=== PATIENT | female | born 1995 | race Caucasian/White ===

== ENCOUNTER 2019-01-27 16:38 | Emergency (ER) | payer BC ==
[~2019-01-27] VITALS: Ht 170.2 cm; Wt 80.9 kg
[2019-01-27 16:48] VITALS: Ht 170.2 cm; Wt 80.9 kg
[2019-01-27] MEDS ORDERED: NEXIUM40 MG PO (16:50)
[2019-01-27 17:09] LABS: BASOPHILS 0.1 % (0-2); EOSINOPHILS 0 % (0-7); HEMATOCRIT 41.5 % (36.0-48.0); IMMATURE GRANULOCYTES 0.2 % (0-5); LYMPHOCYTES 6.6 % (15-50); MCH 30.9 pg (26.0-34.0); MCHC 33.7 g/dL (31.0-37.0); MCV 91.6 fL (80.0-100.0); MEAN PLATELET VOLUME 11.2 fL (7.4-10.4); MONOCYTES 1.7 % (2-11); NEUTROPHILS 91.4 % (40-80); RBC 4.53 10x6/uL (4.00-5.40); RDW 12.9 % (11.5-14.5); WBC 13.7 10x3/uL (4.8-10.8)
[2019-01-27 17:19] LABS: CALC OSMOLALITY 281 mosm/kg (275-300); CARBON DIOXIDE 25.5 mmol/L (21.0-32.0); CHLORIDE - SERUM 103 mmol/L (98-107); CREATININE - SERUM 0.7 mg/dL (0.6-1.3); GLUCOSE 128 mg/dL (74-106); POTASSIUM - SERUM 3.8 mmol/L (3.5-5.1); SODIUM 141 mmol/L (136-145); UREA NITROGEN 10 mg/dL (7-18); eGFR NON AFRICAN AMERICAN > 90 mL/min (90-120)
[2019-01-27 17:24] LABS: PLATELET COUNT 223 10x3/uL (130-400)
[2019-01-27 17:28] LABS: ALBUMIN 4.5 g/dL (3.4-5.0); ALKALINE PHOSPHATASE 71 U/L (46-116); ALT (SGPT) 30 U/L (10-68); AMYLASE - SERUM 31 U/L (25-115); BILIRUBIN - TOTAL 0.37 mg/dL (0.2-1.3); LIPASE 50 U/L (73-393); PROTEIN - SERUM 8.5 g/dL (6.4-8.2)
[2019-01-27 17:29] LABS: TROPONIN-I < 0.017 ng/mL (0.000-0.060)
[2019-01-27 18:20] LABS: APPEARANCE CLEAR (CLEAR); BILIRUBIN NEGATIVE (NEGATIVE); COLOR YELLOW (YELLOW); GLUCOSE NEGATIVE (NEGATIVE); HCG URINE NEGATIVE (NEGATIVE); KETONE LARGE mg/dL (NEGATIVE); NITRITE NEGATIVE (NEGATIVE); PROTEIN NEGATIVE (NEGATIVE); UROBILINOGEN NORMAL (NORMAL)
[2019-01-27] MEDS ORDERED: ZOFRAN ODT4 MG/UDTAB PO (18:59)
[2019-01-27 19:14] VITALS: BP 128/66
[2019-01-28] MEDS ORDERED: PHENERGAN25 MG RC (06:43)
== END 2019-01-27 19:14 | disposition home or self-care (01) ==
LOC: D.ER 16:38
PROVIDERS: Family Medicine
DX: R11.2 Nausea with vomiting, unspecified (principal); R82.90 Unspecified abnormal findings in urine

== ENCOUNTER 2019-01-28 05:25 | Emergency (ER) | payer BC ==
[~2019-01-28] VITALS: Ht 170.2 cm; Wt 80.7 kg
[~2019-01-28 05:25] MED LIST: NEXIUM40 MG PO; ZOFRAN ODT4 MG/UDTAB PO
[2019-01-28 05:29] VITALS: Ht 170.2 cm; Wt 80.7 kg
[2019-01-28 05:47] LABS: BASOPHILS 0.1 % (0-2); EOSINOPHILS 0.1 % (0-7); HEMOGLOBIN 13.9 g/dL (12-16); IMMATURE GRANULOCYTES 0.3 % (0-5); LYMPHOCYTES 10.9 % (15-50); MCH 30.5 pg (26.0-34.0); MCHC 33.1 g/dL (31.0-37.0); MCV 92.3 fL (80.0-100.0); MONOCYTES 5.7 % (2-11); NEUTROPHILS 82.9 % (40-80); PLATELET COUNT 223 10x3/uL (130-400); RBC 4.55 10x6/uL (4.00-5.40); RDW 13.2 % (11.5-14.5); WBC 16.2 10x3/uL (4.8-10.8)
[2019-01-28 05:55] LABS: CALC OSMOLALITY 279 mosm/kg (275-300); CALCIUM 9.6 mg/dL (8.5-10.1); CARBON DIOXIDE 27.2 mmol/L (21.0-32.0); CHLORIDE - SERUM 103 mmol/L (98-107); CREATININE - SERUM 0.8 mg/dL (0.6-1.3); GLUCOSE 107 mg/dL (74-106); POTASSIUM - SERUM 3.5 mmol/L (3.5-5.1); SODIUM 141 mmol/L (136-145); UREA NITROGEN 10 mg/dL (7-18); eGFR NON AFRICAN AMERICAN > 90 mL/min (90-120)
[2019-01-28 06:01] LABS: ALBUMIN 4.2 g/dL (3.4-5.0); ALKALINE PHOSPHATASE 65 U/L (46-116); ALT (SGPT) 27 U/L (10-68); BILIRUBIN - TOTAL 0.58 mg/dL (0.2-1.3); PROTEIN - SERUM 7.7 g/dL (6.4-8.2)
[2019-01-28 06:02] LABS: LIPASE 67 U/L (73-393)
[2019-01-28] MEDS ORDERED: PHENERGAN25 MG RC (06:43)
[2019-01-28 06:52] LABS: T4 THYROXIN - FREE 0.97 ng/dL (0.76-1.46)
[2019-01-28 07:13] LABS: UDS - AMPHET NEGATIVE QUAL (NEGATIVE); UDS - BARB NEGATIVE QUAL (NEGATIVE); UDS - BENZO NEGATIVE QUAL (NEGATIVE); UDS - COCAINE NEGATIVE QUAL (NEGATIVE); UDS - OPIATE NEGATIVE QUAL (NEGATIVE); UDS - PCP NEGATIVE QUAL (NEGATIVE); UDS - THC POSITIVE QUAL (NEGATIVE)
[2019-01-28 07:37] LABS: APPEARANCE CLEAR (CLEAR); BILIRUBIN NEGATIVE (NEGATIVE); COLOR YELLOW (YELLOW); GLUCOSE NEGATIVE (NEGATIVE); HCG URINE NEGATIVE (NEGATIVE); KETONE LARGE mg/dL (NEGATIVE); NITRITE NEGATIVE (NEGATIVE); PROTEIN TRACE mg/dL (NEGATIVE); UROBILINOGEN NORMAL (NORMAL)
[2019-01-28 07:38] LABS: BACTERIA FEW /hpf (NEGATIVE); EPITHELIAL CELLS 0-5 /hpf (0-5); MUCUS <1+ /lpf (NONE SEEN); RED CELLS - URINE 0-5 /hpf (0-5); WHITE CELLS - URINE 0-5 /hpf (NEGATIVE)
[2019-01-28 07:50] VITALS: BP 119/64
== END 2019-01-28 07:51 | disposition home or self-care (01) ==
LOC: D.ER 05:25
PROVIDERS: Family Medicine
DX: E05.90 Thyrotoxicosis, unspecified without thyrotoxic crisis or storm (principal); R11.10 Vomiting, unspecified

== ENCOUNTER → 2019-03-06 | Emergency (ER) | payer BC ==
[~2019-03-06] VITALS: Ht 170.2 cm; Wt 79.5 kg
[~2019-03-06] MED LIST changes: +DEXILANT60 MG PO; +PEPCID AC20 MG PO; +PHENERGAN25 MG RC
[2019-03-06 21:04] VITALS: BP 130/67; Ht 170.2 cm; Wt 79.5 kg
[2019-03-06 21:50] LABS: CALC OSMOLALITY 281 mosm/kg (275-300); CALCIUM 9.5 mg/dL (8.5-10.1); CARBON DIOXIDE 25.5 mmol/L (21.0-32.0); CHLORIDE - SERUM 103 mmol/L (98-107); CREATININE - SERUM 0.7 mg/dL (0.6-1.3); GLUCOSE 136 mg/dL (74-106); POTASSIUM - SERUM 3.7 mmol/L (3.5-5.1); SODIUM 141 mmol/L (136-145); UREA NITROGEN 11 mg/dL (7-18); eGFR NON AFRICAN AMERICAN > 90 mL/min (90-120)
[2019-03-06 21:55] LABS: BASOPHILS 0 % (0-2); EOSINOPHILS 0 % (0-7); HEMATOCRIT 40.3 % (36.0-48.0); HEMOGLOBIN 13.8 g/dL (12-16); IMMATURE GRANULOCYTES 0.1 % (0-5); LYMPHOCYTES 4.7 % (15-50); MCH 30.8 pg (26.0-34.0); MCHC 34.2 g/dL (31.0-37.0); MEAN PLATELET VOLUME 11.1 fL (7.4-10.4); MONOCYTES 1.3 % (2-11); NEUTROPHILS 93.9 % (40-80); PLATELET COUNT 203 10x3/uL (130-400); RBC 4.48 10x6/uL (4.00-5.40); RDW 12.3 % (11.5-14.5); WBC 16.2 10x3/uL (4.8-10.8)
[2019-03-06 21:56] LABS: ALBUMIN 4.5 g/dL (3.4-5.0); ALKALINE PHOSPHATASE 82 U/L (46-116); ALT (SGPT) 44 U/L (10-68); BILIRUBIN - TOTAL 0.28 mg/dL (0.2-1.3); LIPASE 58 U/L (73-393)
[2019-03-06 22:15] LABS: APPEARANCE CLEAR (CLEAR); BILIRUBIN NEGATIVE (NEGATIVE); COLOR YELLOW (YELLOW); GLUCOSE NEGATIVE (NEGATIVE); KETONE NEGATIVE (NEGATIVE); NITRITE NEGATIVE (NEGATIVE); PROTEIN NEGATIVE (NEGATIVE); SPECIFIC GRAVITY 1.025 (1.005-1.020); UROBILINOGEN NORMAL (NORMAL)
[2019-03-06 22:16] LABS: BACTERIA FEW /hpf (NEGATIVE); EPITHELIAL CELLS 0-5 /hpf (0-5); HCG URINE NEGATIVE (NEGATIVE); RED CELLS - URINE 0-5 /hpf (0-5); WHITE CELLS - URINE 0-5 /hpf (NEGATIVE)
== END | disposition home or self-care (01) ==
LOC: D.ER 20:19
PROVIDERS: Family Medicine
DX: R11.0 Nausea (principal); K29.70 Gastritis, unspecified, without bleeding; K21.9 Gastro-esophageal reflux disease without esophagitis

== ENCOUNTER → 2019-05-05 09:22 | Outpatient (CLI) | payer BC ==
[2019-03-06 21:04] VITALS: BMI 27.4
[2019-05-05 10:43] LABS: APTT 31.8 SECONDS (22.8-39.4)
[2019-05-05 10:44] LABS: INR 1.1 (0.85-1.17); PROTIME 14.2 SECONDS (11.6-15.0)
[2019-05-05 10:48] LABS: % SATURATION 53 % (15-55); IRON 137 ug/dl (35-150); TOTAL IRON BIND CAPACITY 258 ug/dl (260-445); UNSAT IRON BIND CAPACITY 121 ug/dl (150-375)
[2019-05-05 11:10] LABS: ALBUMIN 4.7 g/dL (3.4-5.0); ALKALINE PHOSPHATASE 67 U/L (30-120); ALT (SGPT) 52 U/L (10-68); AMYLASE - SERUM 51 U/L (25-115); BILIRUBIN - DIRECT 0.23 mg/dL (0.00-0.30); CALC OSMOLALITY 279 mosm/kg (275-300); CALCIUM 9.9 mg/dL (8.5-10.1); CARBON DIOXIDE 28.1 mmol/L (21.0-32.0); CHLORIDE - SERUM 104 mmol/L (98-107); CHOL - HDL RATIO 2.5 ratio (2.3-4.1); CHOLESTEROL, TOTAL 112 mg/dL (0-200); CREATININE - SERUM 0.8 mg/dL (0.6-1.3); FERRITIN 114 ng/mL (3-244); GAMMA GT 25 U/L (5-85); HDL CHOLESTEROL 45 mg/dL (32-96); LDL CHOLESTEROL 58 mg/dL (0-100); LDL-HDL RATIO 1.3 ratio (1.5-3.5); LIPASE 110 U/L (73-393); POTASSIUM - SERUM 4.1 mmol/L (3.5-5.1); PROTEIN - SERUM 8.2 g/dL (6.4-8.2); SODIUM 141 mmol/L (136-145); TRIGLYCERIDE 47 mg/dL (30-200); UREA NITROGEN 13 mg/dL (7-18); eGFR NON AFRICAN AMERICAN > 90 mL/min (90-120)
[2019-05-05 11:12] LABS: GLUCOSE 83 mg/dL (74-106)
[2019-05-06 08:11] LABS: HAPTOGLOBIN 149 mg/dL (33-278)
[2019-05-06 10:09] LABS: HEPATITIS C ANTIBODY <0.1 (0.0-0.9)
[2019-05-08 13:09] LABS: MITOCHONDRIAL ANTIBODY 30.4 Units (0.0-20.0); SMOOTH MUSCLE ABS (ACTIN) 5 Units (0-19)
[2019-05-08 14:09] LABS: ANA REFLEX - DIRECT Negative (Negative)
== END | disposition home or self-care (01) ==
LOC: D.US 09:22
PROVIDERS: ATTEND Internal Medicine Gastroenterology
DX: K76.0 Fatty (change of) liver, not elsewhere classified (principal); R74.8 Abnormal levels of other serum enzymes; K21.9 Gastro-esophageal reflux disease without esophagitis

== ENCOUNTER → 2019-07-20 09:41 | Outpatient (CLI) | payer BC ==
[2019-03-06 21:04] VITALS: BMI 27.4
== END | disposition home or self-care (01) ==
LOC: D.MRI 05-15 10:00
PROVIDERS: ATTEND Internal Medicine Gastroenterology
DX: R74.0 Nonspecific elevation of levels of transaminase and lactic acid dehydrogenase [LDH] (principal); K76.0 Fatty (change of) liver, not elsewhere classified

== ENCOUNTER 2019-07-21 11:44 | Emergency (ER) | payer BC ==
[~2019-07-21] VITALS: Ht 170.2 cm; Wt 66.2 kg
[2019-07-21 11:51] VITALS: Ht 170.2 cm; Wt 66.2 kg
[2019-07-21 12:00] VITALS: BP 122/86
[2019-07-21 12:18] LABS: BASOPHILS 0.2 % (0-2); EOSINOPHILS 0.9 % (0-7); HEMATOCRIT 41.7 % (36.0-48.0); HEMOGLOBIN 13.7 g/dL (12-16); IMMATURE GRANULOCYTES 0.1 % (0-5); LYMPHOCYTES 31.1 % (15-50); MCH 30.6 pg (26.0-34.0); MCHC 32.9 g/dL (31.0-37.0); MCV 93.1 fL (80.0-100.0); MEAN PLATELET VOLUME 11.6 fL (7.4-10.4); MONOCYTES 5.6 % (2-11); NEUTROPHILS 62.1 % (40-80); PLATELET COUNT 217 10x3/uL (130-400); RBC 4.48 10x6/uL (4.00-5.40); RDW 12.7 % (11.5-14.5); WBC 9.7 10x3/uL (4.8-10.8)
[2019-07-21 12:33] LABS: ANION GAP 16.5 mmol/L (8-16); CALCIUM 9.7 mg/dL (8.5-10.1); CARBON DIOXIDE 24.7 mmol/L (21.0-32.0); POTASSIUM - SERUM 3.2 mmol/L (3.5-5.1)
[2019-07-21 12:39] LABS: ALBUMIN 4.6 g/dL (3.4-5.0); BILIRUBIN - TOTAL 0.45 mg/dL (0.2-1.3); PROTEIN - SERUM 8.1 g/dL (6.4-8.2)
== END 2019-07-21 14:13 | disposition home or self-care (01) ==
LOC: D.ER 11:44
PROVIDERS: Family Medicine
DX: R11.10 Vomiting, unspecified (principal); F12.90 Cannabis use, unspecified, uncomplicated; R10.9 Unspecified abdominal pain